=== PATIENT | female | born 1995 | race African-American/Black ===

== ENCOUNTER 2017-01-20 20:16 | Inpatient (IN) | payer MEDICAID, OTHER ==
[~2017-01-20] VITALS: Ht 170.2 cm; Wt 81.3 kg
[2017-01-20 21:36] VITALS: BP 119/60; PULSE 60; RESP 18
[2017-01-20] MEDS ORDERED: CALC600T5 PO (21:45)
[2017-01-20] MEDS ORDERED: FERR134T PO (21:45)
[2017-01-20] MEDS ORDERED: PREN-47 PO (21:45)
[2017-01-20] MEDS ORDERED: ONDANSETRON 4 MG TAB PO ONE (22:00)
--- NOTE | 2017-01-20 22:10 | RADRPT ---
PROCEDURE: US OB. CLINICAL INDICATION: labor at 35 weeks gestational age. TECHNIQUE: Multiple sonographic images of the uterus were obtained. The images were revi ewed on a PACS workstation. COMPARISON: No prior studies are available for comparison. FINDINGS: There is a single live intrauterine gestation. heart rate is 148 beats per minute. Measurements were made in order to determine age. The results are as follows: BPD = 8.68 cm. HC = 31.38 cm. AC = 32.04 cm. FL = 7.08 cm. Estimated weight is 2786 +/- 418 grams. LMP growth percentile is 47 %. Menstrual age by ultrasound dates is 35 weeks 4 days. The estimated date of delivery is 02/20/2017. Position is cephalic and placenta is anterior grade 2. There is no evidence for an abruption or plac enta previa. IMPRESSION: 1. Single live intrauterine gestation of 35 weeks 4 days menstrual age by ultrasound dates. 2. The estimated date of delivery is 02/20/2017. RPTAT: QQ .Branden Alston MD, Date Time Electronically viewed and signed by .Branden Alston MD, on 01/20/2017 22:09 .R/
--- NOTE | 2017-01-21 00:46 | HP ---
Date/Time of Note Date/Time of Note DATE: 01/21/17 TIME: 00:40 OB - History Hx of Present Free Text/Dictation Patient presented with complaint of lower abdominal pain and contractions for the last 3 days as well as nausea vomiting and urinary frequency. Reports has been urinating every 30 minutes with urinary urgency for the past 2-3 days. She also complains of nausea, reports after she eats she vomits. Denies any fever or chills. Denies any leaking of fluid, vaginal bleeding or decreased movement. Patient reports that she had care in [place] recently moved here. She had last visit a month ago. She plans to deliver at [place]. No records available. Denies any complications during her course She was noted to have UTI during observation in, triage a deceleration in heart tone noted down to 70s that recovered over a minutes. Patient for that reason was admitted to antepartum service for observation. She also will be started on IV antibiotics due to UTI. : 2 Para: 0 Spontaneous : 0 Care: Other Obstetrical Complications: None Medical Complications: None Past Family/Social History * Past Medical, Surgical, Family and Obstetric Histories reviewed from chart. OB Admission Exam Vital Signs Vital Signs Vital Signs Date Time Temp Pulse Resp B/P Pulse Ox O2 Delivery O2 Flow Rate FiO2 01/20/17 21:36 98.0 60 18 119/60 Room Air Physical Exam HEENT: WNL Heart: Rhythm Normal Lungs: Clear Abdomen: Abnormal (Suprapubic tenderness noted) Extremities: Normal Cervical Dilatation: None Effacement: 0% Membranes: Intact Heart Rate: 130's Accelerations: Accelerations Present Decelerations: Late Decelarations Varibility: Moderate Contractions on Admission: 6-10 Minutes Apart Intensity: Mild Last 72 hours Lab Results CBC & BMP 01/20/17 22:20 Liver Function Test 01/20/17 22:20 Alanine Aminotransferase (ALT/SGPT) 26 Albumin 3.3 Alkaline Phosphatase 191 H Aspartate Amino Transf (AST/SGOT) 27 Direct Bilirubin 0.00 Total Protein 6.8 OB Assessment/Plan Other Assessment: IUP at 36 weeks Suprapubic pain urinary frequency and urgency consistent with UTI, Deceleration and heart rate noted during observation in triage Unclear etiology Patient will be admitted to antepartum service for observation overnight We will start on IV Ancef for UTI Urine culture and sensitivity Watch closely for heart tracing perinatology consultation tomorrow Expectant management Continuous monitoring CHELSEY LOZADA MD Jan 21, 2017 00:46
[2017-01-21] MEDS ORDERED: ACETAMINOPHEN 325 MG TAB PO PRN (01:30)
[2017-01-21] MEDS ORDERED: AL HYDROX/MG HYDROX/SIMETH 30 ML CUP PO PRN (01:30)
[2017-01-21] MEDS ORDERED: ONDANSETRON 4 MG INJ IV PRN (01:30)
[2017-01-21] MEDS: LACTATED RINGER'S 1,000 ML IV SCH ×3 (03:32→20:09)
[2017-01-21] MEDS: CEFAZOLIN 2 GM/50 ML (PMX) 50 ML IV SCH ×3 (06:08→21:59)
--- NOTE | 2017-01-21 08:35 | RADRPT ---
PROCEDURE: US biophysical profile. CLINICAL INDICATION: labor. well-being. TECHNIQUE: Multiple sonographic images of the uterus were obtained. The images were revi ewed on a PACS workstation. COMPARISON: No prior studies are available for comparison. FINDINGS: There is a single live intrauterine gestation. heart rate is 148 beats per minute. The position is cephalic. The placenta is anterior, grade II. The MILAN is 11.8 cm. Breathing Movement: 2 Gross Body Movement: 2 Tone: 2 Qualitative Amniotic Fluid Volume: 2 TOTAL: 8 IMPRESSION: 1. Single viable intrauterine gestation. 2. Biophysical profile = 11/03. 3. MILAN = 11.8 cm. RPTAT: HFN .Ramonita Carrizales MD, MD Date Time Electronically viewed and signed by .Ramonita Carrizales MD, MD on 01/20/2017 22:56 .N/
--- NOTE | 2017-01-21 08:38 | TRIAGE ---
OB Triage Datetime Report Generated by CPN: 01/21/2017 02:25 Datetime: 01/21/2017 01:33 Monitor Mode: External Quality: Mild Pattern: Normal: <= 5 Contractions in 10 Minutes Resting Tone [place]: Relaxed Heart Rate FHR Baseline Rate: 135 Monitor Mode: External US Vaginal Exam Dilatation (cms): 0.0 Effacement (%): 50 Station: -3 Exam By: E Randy Membrane Status: Intact Vaginal Bleeding: None Cervix, Consistency: Moderate Cervix, Position: Posterior Presentation 'A': Cephalic Datetime: 01/21/2017 01:05 Stage of : OB Triage Monitor Mode: External Quality: Mild Pattern: Normal: <= 5 Contractions in 10 Minutes Resting Tone [place]: Relaxed Heart Rate FHR Baseline Rate: 130 Monitor Mode: External US FHR Baseline Changes: No Baseline Change Variability: Moderate 6-25 bpm Accelerations: 15X15 Decelerations: None Category: Category I Datetime: 01/21/2017 00:38 Heart Rate FHR Baseline Rate: 135 Monitor Mode: External US FHR Baseline Changes: No Baseline Change Variability: Moderate 6-25 bpm Accelerations: 15X15 Decelerations: None Category: Category I Datetime: 01/21/2017 00:17 Stage of : OB Triage Quality: Mild Pattern: Normal: <= 5 Contractions in 10 Minutes Resting Tone [place]: Relaxed Heart Rate FHR Baseline Rate: 135 Monitor Mode: External US FHR Baseline Changes: No Baseline Change Variability: Moderate 6-25 bpm Accelerations: 15X15 Datetime: 01/20/2017 23:27 Stage of : OB Triage Monitor Mode: External Quality: Mild Pattern: Normal: <= 5 Contractions in 10 Minutes Resting Tone [place]: Relaxed Heart Rate FHR Baseline Rate: 135 Monitor Mode: External US FHR Baseline Changes: No Baseline Change Variability: Moderate 6-25 bpm Accelerations: 15X15 Decelerations: Variable Category: Category II Datetime: 01/20/2017 22:33 Stage of : OB Triage Monitor Mode: External Monitor Mode: External US Variability: Moderate 6-25 bpm Accelerations: 15X15 Decelerations: None Datetime: 01/20/2017 22:16 Stage of : OB Triage Heart Rate FHR Baseline Rate: 140 Monitor Mode: External US Datetime: 01/20/2017 21:25 Stage of : OB Triage Monitor Mode: External Quality: Mild Pattern: Normal: <= 5 Contractions in 10 Minutes Resting Tone [place]: Relaxed Heart Rate FHR Baseline Rate: 140 Monitor Mode: External US FHR Baseline Changes: No Baseline Change Variability: Moderate 6-25 bpm Accelerations: 15X15 Decelerations: Variable Category: Category II Datetime: 01/20/2017 21:06 Stage of : OB Triage Labor Evaluation Frequency: 2-10min Monitor Mode: External Duration (sec)2399: 20-40sec Quality: Mild Pattern: Normal: <= 5 Contractions in 10 Minutes Resting Tone [place]: Relaxed Heart Rate FHR Baseline Rate: 140 Monitor Mode: External US FHR Baseline Changes: No Baseline Change Variability: Moderate 6-25 bpm Accelerations: 15X15 Decelerations: Variable Category: Category II Datetime: 01/20/2017 20:30 Time of Arrival: 01/20/2017 20:09 EGA: 36.0 Arrived By: Wheelchair Arrived From: Home Chief Complaint: with care in [place]. C/O n/v with food x 2 days (able to tolerate fluids ), tightening and pressure q30 min x 1 wk Movement: Present Contractions: Irregular Contractions: q30 Rupture of Membranes: Denies Vaginal Bleeding: None Vaginal Discharge: Denies Recent Sexual Intercouse: Denies Abdominal Trauma: Not Applicable Patient Complaints: Cramping; Nausea; Vomiting; Dependent Edema Time Provider Notified: 01/20/2017 21:25 Provider Notified: Dr Arce Initial Plan: EFM,SVE,CBC,CMP,UA,ZOFRAN PO,EFW,BPP Datetime: 01/20/2017 20:26 Stage of : OB Triage Maternal Assessment Level of Consciousness: Fully Conscious Headache: Denies Blurred Vision: No Nausea/Vomiting: Hx of Nausea/Vomiting RUQ Epigastric Pain: Denies Facial Edema: None Monitor Mode: External Resting Tone [place]: Relaxed Heart Rate FHR Baseline Rate: 145 Monitor Mode: External US Pain Assessment Pain Scale: 7 Pain Presence: Intermittent Pain Type: Cramping Pain Location: Abdomen
[2017-01-21] MEDS: PRENATAL VITAMIN PO SCH (09:24)
[2017-01-21] MEDS: FERROUS SULFATE (EC) 325 MG TAB PO SCH (09:24)
--- NOTE | 2017-01-21 15:32 | QN ---
Documentation Comment January 21, 2017 Hospital high risk visit This patient is a 21 years old 2 para 0 1 who he is now 36 weeks came in through ER complaining of nausea vomiting and urinary frequency. The following is short description of the reason for her admission: ( Patient presented with complaint of lower abdominal pain and contractions for the last 3 days as well as nausea vomiting and urinary frequency. Reports has been urinating every 30 minutes with urinary urgency for the past 2-3 days. She also complains of nausea, reports after she eats she vomits. Denies any fever or chills. Denies any leaking of fluid, vaginal bleeding or decreased movement. Patient reports that she had care in [place] recently moved here. She had last visit a month ago. She plans to deliver at [place]. No records available. Denies any complications during her course She was noted to have UTI during observation in, triage a deceleration in heart tone noted down to 70s that recovered over a minutes. Patient for that reason was admitted to antepartum service for observation. She also will be started on IV antibiotics due to UTI. : ) .Patient underwent a preliminary workup. She was also seen by Dr. Huggins our perinatologist this morning. Laboratory Tests Test 01/20/17 20:30 01/20/17 22:20 01/21/17 08:01 Urine Color YELLOW Urine Clarity SLIGHTLY CLOUDY Urine pH 6.0 Urine Specific [place] 1.015 Urine Ketones NEGATIVEmg/dL Urine Nitrite NEGATIVEmg/dL Urine Bilirubin NEGATIVEmg/dL Urine Urobilinogen NEGATIVEmg/dL Urine Leukocyte Esterase 2+Robson/ul Urine Microscopic RBC 1/HPF Urine Microscopic WBC 24/HPF Urine Squamous Epithelial Cells FEW/HPF Urine Bacteria FEW/HPF Urine Hemoglobin NEGATIVEmg/dL Urine Glucose NEGATIVEmg/dL Urine Total Protein NEGATIVEmg/dl White Blood Count 8.410^3/ul Red Blood Count 3.3610^6/ul Hemoglobin 10.2g/dl Hematocrit 30.2% Mean Corpuscular Volume 89.9fl Mean Corpuscular Hemoglobin 30.4pg Mean Corpuscular Hemoglobin Concent 33.8g/dl Red Cell Distribution Width 14.3% Platelet Count 61419^3/UL Mean Platelet Volume 11.1fl Neutrophils % 62.7% Lymphocytes % 23.2% Monocytes % 12.2% Eosinophils % 1.2% Basophils % 0.2% Nucleated Red Blood Cells % 0.0/100WBC Neutrophils # 5.210^3/ul Lymphocytes # 1.910^3/ul Monocytes # 1.010^3/ul Eosinophils # 0.110^3/ul Basophils # 0.010^3/ul Nucleated Red Blood Cells # 0.010^3/ul Sodium Level 135mmol/L Potassium Level 3.7mmol/L Chloride Level 107mmol/L Carbon Dioxide Level 21mmol/L Anion Gap 11 Blood Urea Nitrogen 9mg/dl Creatinine 0.67mg/dl Glucose Level 106mg/dl Calcium Level 9.7mg/dl Total Bilirubin 0.1mg/dl Direct Bilirubin 0.00mg/dl Indirect Bilirubin 0.1mg/dl Aspartate Amino Transf (AST/SGOT) 27IU/L Alanine Aminotransferase (ALT/SGPT) 26IU/L Alkaline Phosphatase 191IU/L Total Protein 6.8g/dl Albumin 3.3g/dl Globulin 3.50g/dl Albumin/Globulin Ratio 0.94 Prothrombin Time 11.6Sec Prothrombin Time Ratio 0.9 INR International Normalized Ratio 0.85 Activated Partial Thromboplast Time 20.4Sec Hepatitis B Surface Antigen NEGATIVE Current Medications Medications (Trade) Dose Ordered Sig/[place] Route PRN Reason Start Time Stop Time Status Last Admin Dose Admin Ondansetron HCl 4 mg 4 mg ONCE ONCE PO 01/20/17 22:00 01/20/17 22:01 DC 01/20/17 22:32 Lactated Ringer's 1,000 ml @ 125 mls/hr Q8H IV 01/21/17 01:09 01/21/17 09:24 Cefazolin Sodium/ Dextrose (Ancef 2 Gm/50 ml (Pmx)) 50 ml @ 100 mls/hr Q8 IV 01/21/17 06:00 01/21/17 14:26 Prenat Multivit/ [place]/Iron/Folic Ac () 1 tab DAILY PO 01/21/17 09:00 01/21/17 09:24 Ferrous Sulfate (Ferrous Sulfate (Ec)) 325 mg DAILY PO 01/21/17 09:00 01/21/17 09:24 Acetaminophen (Tylenol Tab) 650 mg Q4H PRN PO PAIN AND OR ELEVATED TEMP 01/21/17 01:30 Al Hydrox/Mg Hydrox/Simethicone (Mag-Al Plus) 30 ml Q6H PRN PO GASTROINTESTINAL UPSET 01/21/17 01:30 Ondansetron HCl (Zofran Inj) 4 mg Q6H PRN IV NAUSEA AND/OR VOMITING 01/21/17 01:30 . . . On examination she is afebrile abdomen is soft ear nose throat appears to be normal neck is normal no neck vein distention no thyromegaly no lymph node enlargement anywhere on the body chest is clear to auscultation percussion heart normal sinus rhythm she does not have much or contraction heart tone is normal with very good variability occasional acceleration no decelerations she is already placed on Ancef At this time she is afebrile. If she continues improving we might be able to send her home tomorrow. NIKI BALBUENA MD Jan 21, 2017 15:31
--- NOTE | 2017-01-22 02:20 | CONS ---
DATE OF ADMISSION: 01/21/2017 DATE OF CONSULTATION: 01/21/2017 HISTORY OF PRESENT ILLNESS: The patient was admitted after she experienced some abdominal pain. Sh alis also was experiencing some nausea which is secondary to having had a large amount of pizza, which she had to induce her own vomiting because of the acid reflux disease. Urinalysis was done and the 2+ leukocyte was found. She was placed on Ancef. PAST MEDICAL HISTORY: Significant for history of pyelonephritis prior to . Otherwise, her history is negative. PHYSICAL EXAMINATION: VITAL SIGNS: No fever. There is no evidence of CVA tenderness. heart tone is reassuring for gestational age and ther e is very infrequent contractions. IMPRESSION: Intrauterine at 36 weeks and 2 days with a urinary tract infection on Ancef. Her nausea has resolved and she has been tolerating food well and her nausea was most likely seconda ry to large amount of pizza and acid reflux disease. RECOMMENDATIONS: Follow up on urine culture and change antibiotics if necessary. PLEASE BE AWARE T HAT SHE IS ALLERGIC TO PENICILLIN WITH SWELLING AND RASH. It is very important to follow up on these results as the patient has history of pyelonephritis. Abdominal pain is probably secondary to contractions and at this gestational age, they are normal an d she mentioned that she got nervous because this is her first . She does have care at [place] and she had an appointment today which she missed. Please , if she is to be discharged tomorrow or over the weekend, please obtain patient's primary MD or obs tetrician so the results of her urine culture and sensitivity can be faxed to the physician if francia vela and I advised her to have more frequent meals, but smaller portions. Again, follow up on the urine culture results and sensitivity and change antibiotics if needed. Dictated By: OSCAR PICHARDO MD ST/JOSR Conf#: [id number] DID#: [id number]
[2017-01-22] MEDS: LACTATED RINGER'S 1,000 ML IV SCH ×2 (04:03→09:09)
[2017-01-22] MEDS: CEFAZOLIN 2 GM/50 ML (PMX) 50 ML IV SCH ×2 (05:50→13:20)
[2017-01-22] MEDS: PRENATAL VITAMIN PO SCH (09:00)
[2017-01-22] MEDS: FERROUS SULFATE (EC) 325 MG TAB PO SCH (09:22)
[2017-01-22] MEDS ORDERED: INFLUENZA VIRUS VACCINE 0.5 ML SYG IM* ONE (11:30)
--- NOTE | 2017-01-22 11:47 | RADRPT ---
PROCEDURE: US OB biophysical profile. CLINICAL INDICATION: decreased movements TECHNIQUE: Multiple sonographic images of the pelvis were obtained. The images were reviewed on a PACS workstation. COMPARISON: US PELVIS 01/20/2017 FINDINGS: There is a single viable intrauterine gestation. Cardiac activity is present with 154 beats per min nino. There is a vertex presentation. The placenta is anterior. There is no evidence of placental abruption. There is a normal amount of amniotic fluid with an MILAN = 10.7 cm. Biophysical profile: movement 2/2 tone 2/2. breathing 2/2 MILAN 2/2 Total 11/03 RPTAT: AA . IMPRESSION: Normal biophysical profile. . .Efren Merchant MD, MD Date Time Electronically viewed and signed by .Efren Merchant MD, on 01/22/2017 11:46 .S/
--- NOTE | 2017-01-22 13:31 | QN ---
Documentation Comment 36+wks GA +FM No VB No LOF No CTXs No urinary symptoms NST reassuring [place] No CTXs BPP 11/03 --->discharge home with precautions --->patient's questions answered MABLE BARROSO M.D. Jan 22, 2017 13:31
--- NOTE | 2017-01-22 13:32 | DS ---
Date/Time of Note Date/Time of Note DATE: 01/22/17 TIME: 13:31 Discharge Summary Admission/Discharge Info Admit Date/Time Jan 21, 2017 at 01:25 Discharge Date/Time Discharge Diagnosis labor UTI Patient Condition: Good Hospital Course Uneventful Home Meds Reported Medications Ferrous Sulfate (Iron) 134 Mg Tablet, 134 MG PO DAILY, TAB 01/20/17 Calcium Carbonate (CALCIUM) 600 Mg Tablet, 600 MG PO d, TAB 01/20/17 [id number]-Ieug-Aizyc Acid ([place] Chewable) 1 Each Tab.chew, 1 TAB PO DAILY, TAB.CHEW 01/20/17 Primary Care Provider Care Physician MABLE Arreola M.D. Jan 22, 2017 13:32
--- NOTE | 2017-01-22 13:32 | DS ---
Date/Time of Note Date/Time of Note DATE: 01/22/17 TIME: 13:31 Discharge Summary Admission/Discharge Info Admit Date/Time Jan 21, 2017 at 01:25 Discharge Date/Time Discharge Diagnosis labor UTI Patient Condition: Good Hospital Course Uneventful Home Meds Reported Medications Ferrous Sulfate (Iron) 134 Mg Tablet, 134 MG PO DAILY, TAB 01/20/17 Calcium Carbonate (CALCIUM) 600 Mg Tablet, 600 MG PO d, TAB 01/20/17 [id number]-Ibkm-Gqgty Acid ([place] Chewable) 1 Each Tab.chew, 1 TAB PO DAILY, TAB.CHEW 01/20/17 Primary Care Provider Care Physician MABLE Arreola M.D. Jan 22, 2017 13:32
--- NOTE | 2017-01-22 13:32 | DS ---
Date/Time of Note Date/Time of Note DATE: 01/22/17 TIME: 13:31 Discharge Summary Admission/Discharge Info Admit Date/Time Jan 21, 2017 at 01:25 Discharge Date/Time Discharge Diagnosis labor UTI Patient Condition: Good Hospital Course Uneventful Home Meds Reported Medications Ferrous Sulfate (Iron) 134 Mg Tablet, 134 MG PO DAILY, TAB 01/20/17 Calcium Carbonate (CALCIUM) 600 Mg Tablet, 600 MG PO d, TAB 01/20/17 [id number]-Urkj-Dcwdg Acid ([place] Chewable) 1 Each Tab.chew, 1 TAB PO DAILY, TAB.CHEW 01/20/17 Primary Care Provider Care Physician MABLE Arreola M.D. Jan 22, 2017 13:32
== END 2017-01-22 14:48 | disposition home or self-care (01) | DRG 781 ==
LOC: OBT 20:16 → L-D 20:19 → OBG 01-21 01:25 → OBT 01-21 01:25
PROVIDERS: ADMIT Obstetrics & Gynecology Obstetrics; ATTEND Obstetrics & Gynecology Obstetrics
DX: O23.43 Unspecified infection of urinary tract in pregnancy, third trimester (principal); Z3A.36 36 weeks gestation of pregnancy
CPT/HCPCS: 36415; 76815; 76818; 80053; 80307; 81001; 85025; 85610; 85730; 86592; 86900; 86901; 87086; 87340; 90686; G0463; J0690; J7120